=== PATIENT | male | born 1975 | race African-American/Black ===

== ENCOUNTER 2018-05-28 23:06 | Emergency (ER) | payer SELFPAY | END 2018-05-29 04:44 | disposition home or self-care (01) | LOC: ER 23:06 | DX: T83.028A Displacement of other urinary catheter, initial encounter (principal); I10 Essential (primary) hypertension | CPT/HCPCS: 51705; 99284-25 ==

== ENCOUNTER 2018-09-03 02:26 | Emergency (ER) | payer SELFPAY ==
[~2018-09-03] VITALS: Ht 177.8 cm; Wt 59.9 kg
[2018-09-03] MEDS ORDERED: diphenhydrAMINE 50 MG/ML VIAL IV ONE (03:00)
[2018-09-03] MEDS ORDERED: FAMOTIDINE 20 MG/2 ML VIAL IVP ONE (03:00)
[2018-09-03] MEDS ORDERED: IV NORMAL SALINE 1000ML BAG 1,000 ML IV ONE (03:00)
[2018-09-03] MEDS ORDERED: DEXAMETHASONE SOD PHOS 20 MG/5 ML VIAL. IV ONE (03:00)
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
[2018-09-03 03:48] LABS: BASO # 0.1 x10^3/uL (0.0-0.2); BASO % 1 % (0-3); EOS # 0.1 x10^3/uL (0.0-0.7); EOS % 1 % (0-3); HEMOGLOBIN 15.1 g/dL (13.0-17.5); LYMPH # 2.5 x10^3/uL (1.0-4.8); LYMPH % 23 % (24-48); MEAN CORPUSCULAR HEMOGLOBIN 31 pg (25-35); MEAN CORPUSCULAR HGB CONC 34 g/dL (31-37); MEAN CORPUSCULAR VOLUME 91 fL (79-100); MONO # 1.1 x10^3/uL (0.0-1.1); MONO % 10 % (0-9); NEUT # 7.3 x10^3uL (1.8-7.7); NEUT % 66 % (31-73); PLATELET COUNT 186 x10^3/uL (140-400); RED BLOOD COUNT 4.92 x10^6/uL (4.30-5.70); RED CELL DISTRIBUTION WIDTH 13.9 % (11.5-14.5); WHITE BLOOD COUNT 11.1 x10^3/uL (4.0-11.0)
[2018-09-03 03:54] LABS: CALCIUM 9.9 mg/dL (8.5-10.1); CREATININE 1.6 mg/dL (0.7-1.3); GFR 57.4; POTASSIUM 4.1 mmol/L (3.5-5.1)
[2018-09-03 04:00] LABS: ALBUMIN 4.1 g/dL (3.4-5.0); ALBUMIN/GLOBULIN RATIO 0.9 (1.0-1.7); MAGNESIUM 1.9 mg/dL (1.8-2.4); TOTAL BILIRUBIN 0.9 mg/dL (0.2-1.0); TOTAL PROTEIN 8.6 g/dL (6.4-8.2)
[2018-09-03 04:05] LABS: BILIRUBIN,URINE NEGATIVE (NEG); CLARITY,URINE CLEAR; COLOR,URINE YELLOW; NITRITE,URINE NEGATIVE (NEG); PH,URINE 6.5; PROTEIN,URINE NEGATIVE (NEG-TRACE); UROBILINOGEN,URINE 0.2 mg/dL (0.2 mg/dL)
[2018-09-03 04:11] LABS: BARBITURATES NEG (NEG); BENZODIAZEPINES NEG (NEG); CANNABINOIDS POS (NEG); COCAINE NEG (NEG); METHADONE NEG (NEG); OPIATES NEG (NEG); PHENCYCLIDINE POS (NEG)
[2018-09-03 04:13] LABS: AMPHETAMINE/METHAMPHETAMINE NEG (NEG)
[2018-09-03 04:17] LABS: BACTERIA,URINE 0 /HPF (0-FEW); WBC,URINE TNTC /HPF (0-4)
--- NOTE | 2018-09-03 04:41 | RAD ---
Ultrasound testes HISTORY: Left-sided pain and swelling Sonographic examination was performed of the testes and multiple static images were obtained The testes have normal echotexture and blood flow. The right testis measures 3.5 x 2.6 x 1.8 cm. The cyst measures approximately 2.6 x 1.7 cm. The right testis migrated during the examination, the patient claims attempts to both testes. The small hydrocele right. The left testis and epididymis are hyperemic. The left epididymis is enlarged and heterogeneous. IMPRESSION: Increased blood flow within the left epididymis and testis suggest epididymitis and orchitis. Electronically signed by: Kory Thakkar III, MD (09/03/2018 4:37 AM) [facility]
[2018-09-03] MEDS ORDERED: CEPH-264 PO (05:03)
[2018-09-03 05:14] VITALS: BP 137/91
[2018-09-03] MEDS ORDERED: AZITHROMYCIN 250 MG TABLET. PO ONE (05:30)
== END 2018-09-03 05:33 | disposition home or self-care (01) ==
LOC: ER 02:26
DX: S00.531A Contusion of lip, initial encounter (principal); N45.3 Epididymo-orchitis; I10 Essential (primary) hypertension; F17.200 Nicotine dependence, unspecified, uncomplicated; W04.XXXA Fall while being carried or supported by other persons, initial encounter; Y93.89 Activity, other specified; Y92.89 Other specified places as the place of occurrence of the external cause; Y99.8 Other external cause status
CPT/HCPCS: 36415; 76870; 80053; 80307; 81001; 83605; 83735; 85025; 87086; 96365; 96375; 99285; G0480; J0690; J1100; J1200; J3490; J7030; Q0144; 87491; 87591

== ENCOUNTER 2019-02-20 20:46 | Inpatient (IN) | payer SELFPAY ==
[~2019-02-20] VITALS: Ht 180.3 cm; Wt 59.9 kg
[~2019-02-20 20:46] MED LIST: CEPH-264 PO
[2019-02-20 22:07] LABS: BILIRUBIN,URINE SMALL (NEG); CLARITY,URINE TURBID; COLOR,URINE RED; NITRITE,URINE NEGATIVE (NEG); PH,URINE 8.5; PROTEIN,URINE >=300 mg/dL (NEG-TRACE); UROBILINOGEN,URINE 0.2 mg/dL (0.2 mg/dL)
[2019-02-20 22:14] LABS: BACTERIA,URINE MANY /HPF (0-FEW); SQUAMOUS EPITHELIAL CELL,UR OCC /LPF; WBC,URINE TNTC /HPF (0-4)
[2019-02-20] MEDS ORDERED: ONDANSETRON PF 4 MG/2 ML VIAL. IV ONE (22:30)
[2019-02-20] MEDS ORDERED: TAMSULOSIN 0.4 MG CAP.ER.24H. PO ONE (22:30)
[2019-02-20] MEDS ORDERED: MORPHINE SULFATE 10 MG/ML VIAL. IV ONE ×2 (22:30→23:45)
[2019-02-20] MEDS ORDERED: KETOROLAC 30 MG/ML VIAL. IV ONE (22:30)
[2019-02-20 22:38] LABS: BASO % 0 % (0-3); EOS % 0 % (0-3); HEMATOCRIT 47.2 % (39.0-53.0); HEMOGLOBIN 15.3 g/dL (13.0-17.5); LYMPH # 0.5 x10^3/uL (1.0-4.8); LYMPH % 3 % (24-48); MEAN CORPUSCULAR HEMOGLOBIN 30 pg (25-35); MEAN CORPUSCULAR HGB CONC 32 g/dL (31-37); MEAN CORPUSCULAR VOLUME 92 fL (79-100); MONO # 0.7 x10^3/uL (0.0-1.1); MONO % 4 % (0-9); NEUT # 15.9 x10^3uL (1.8-7.7); NEUT % 93 % (31-73); PLATELET COUNT 153 x10^3/uL (140-400); RED BLOOD COUNT 5.13 x10^6/uL (4.30-5.70); RED CELL DISTRIBUTION WIDTH 14.5 % (11.5-14.5); WHITE BLOOD COUNT 17.1 x10^3/uL (4.0-11.0)
[2019-02-20] MEDS: IV NORMAL SALINE 1000ML BAG 1,000 ML IV SCH ×2 (22:43→22:56)
[2019-02-20] MEDS ORDERED: PIPERACILLIN/TAZOBACTAM 4.5 GM in IV NORMAL SALINE 100ML 100 ML IV ONE (22:45)
[2019-02-20 22:54] LABS: CREATININE 1.6 mg/dL (0.7-1.3); GFR 57.1; POTASSIUM 3.7 mmol/L (3.5-5.1)
[2019-02-20 23:00] LABS: BARBITURATES NEG (NEG); BENZODIAZEPINES NEG (NEG); CANNABINOIDS POS (NEG); COCAINE NEG (NEG); METHADONE NEG (NEG); OPIATES NEG (NEG); PHENCYCLIDINE POS (NEG)
[2019-02-20] MEDS ORDERED: VANCOMYCIN PER PHARMACY MC ONE (23:00)
[2019-02-20] MEDS ORDERED: VANCOMYCIN 1.5 GM in IV NORMAL SALINE 500ML BAG 500 ML IV ONE (23:00)
[2019-02-20 23:02] LABS: AMPHETAMINE/METHAMPHETAMINE NEG (NEG)
[2019-02-20 23:03] LABS: ALBUMIN 4.1 g/dL (3.4-5.0); ALBUMIN/GLOBULIN RATIO 1.1 (1.0-1.7); TOTAL BILIRUBIN 1.1 mg/dL (0.2-1.0); TOTAL PROTEIN 7.9 g/dL (6.4-8.2)
[2019-02-20 23:16] LABS: % LYMPHS 5 % (24-48); % MONOS 1 % (0-10); % SEGS 94 % (35-66)
[2019-02-20 23:18] LABS: ANISOCYTOSIS SLIGHT; PLT ESTIMATE ADEQUATE (ADEQUATE); POLYCHROMASIA SLIGHT
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
[2019-02-21] MEDS ORDERED: MORPHINE SULFATE 4 MG/ML VIAL. IV PRN (00:45)
[2019-02-21] MEDS ORDERED: cloNIDine HCL 0.1 MG TABLET PO PRN (00:45)
[2019-02-21] MEDS ORDERED: cloNIDine HCL 0.1 MG TABLET PO ONE (00:45)
[2019-02-21] MEDS ORDERED: ONDANSETRON PF 4 MG/2 ML VIAL. IV PRN (00:45)
[2019-02-21] MEDS ORDERED: IV NORMAL SALINE 1000ML BAG 1,000 ML IV ONE (00:45)
[2019-02-21] MEDS ORDERED: ACETAMINOPHEN 325 MG TABLET. PO PRN (00:45)
[2019-02-21 03:00] VITALS: BP 105/69
--- NOTE | 2019-02-21 04:08 | NUR ---
The patient, SILAS HA, 44 y/o, M admitted by HUEY QUINTANA MD, was given written information regarding hospital policies, unit procedures and contact persons. Valuables were checked and left with patient .
[2019-02-21] MEDS ORDERED: AMLO5TAB10 PO (05:55)
[2019-02-21 07:00] VITALS: BP 123/76
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
[2019-02-21] MEDS ORDERED: PHENAZOPYRIDINE 200 MG TABLET. PO PRN (10:45)
[2019-02-21] MEDS ORDERED: PIP/TAZO PER PHARMACY MC PRN (10:45)
[2019-02-21 11:00] VITALS: BP 132/86
[2019-02-21] MEDS ORDERED: NICOTINE 21MG PATCH. TD PRN (11:00)
[2019-02-21] MEDS: amLODIPine BESYLATE 5 MG TABLET PO SCH (11:48)
[2019-02-21] MEDS: PIPERACILLIN/TAZOBACTAM 3.375 GM in IV NORMAL SALINE 50ML 50 ML IV SCH ×2 (11:51→17:46)
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
[2019-02-21 15:00] VITALS: BP 116/69
--- NOTE | 2019-02-21 15:56 | NUR ---
SW consulted for homelessness and needs a job. Chart reviewed. PAT team seen pt and pt is provided with housing information/Job information. Pt denies need for OP tx for Substance use. Pt also stated he currently is staying with family friends at this time. Will continue to follow.
[2019-02-21 19:00] VITALS: BP 136/87
[2019-02-21 23:00] VITALS: BP 129/77
[2019-02-22] MEDS: PIPERACILLIN/TAZOBACTAM 3.375 GM in IV NORMAL SALINE 50ML 50 ML IV SCH ×4 (00:30→18:00)
[2019-02-22 03:00] VITALS: BP 122/70
[2019-02-22 07:00] VITALS: BP 116/75
[2019-02-22 08:31] LABS: BASO # 0.1 x10^3/uL (0.0-0.2); BASO % 1 % (0-3); EOS # 0.1 x10^3/uL (0.0-0.7); EOS % 1 % (0-3); HEMOGLOBIN 13.4 g/dL (13.0-17.5); LYMPH # 0.9 x10^3/uL (1.0-4.8); LYMPH % 11 % (24-48); MEAN CORPUSCULAR HEMOGLOBIN 30 pg (25-35); MEAN CORPUSCULAR HGB CONC 33 g/dL (31-37); MEAN CORPUSCULAR VOLUME 93 fL (79-100); MONO % 13 % (0-9); NEUT % 75 % (31-73); PLATELET COUNT 135 x10^3/uL (140-400); RED BLOOD COUNT 4.42 x10^6/uL (4.30-5.70); RED CELL DISTRIBUTION WIDTH 14.3 % (11.5-14.5)
[2019-02-22 08:45] LABS: CALCIUM 8.6 mg/dL (8.5-10.1); CREATININE 1.5 mg/dL (0.7-1.3); GFR 61.5; POTASSIUM 3.7 mmol/L (3.5-5.1)
[2019-02-22 11:00] VITALS: BP 135/86
[2019-02-22] MEDS: amLODIPine BESYLATE 5 MG TABLET PO SCH (13:15)
[2019-02-22] MEDS ORDERED: CIPR250T30 PO (14:13)
[2019-02-22] MEDS ORDERED: PHEN-444 PO (14:13)
--- NOTE | 2019-02-22 14:16 | PDOC3 ---
Discharge Summary Visit Information Date of Admission: Feb 21, 2019 Date of Discharge: Feb 22, 2019 Admitting Diagnosis: abd pain Final Diagnosis UTI, wth SIRS, leukocytosis and tachypnea, sepsis acute pelvic pain weakness substance abuse, PCP and THC Problems Medical Problems: (1) Chronic renal failure Status: Acute (2) Hypertension Status: Acute (3) Urinary tract infection associated with catheterization of urinary tract Status: Acute Brief Hospital Course Allergies Allergies Coded Allergies Type Severity Reaction Last Updated Verified No Known Drug Allergies 04/24/14 No Vital Signs Vital Signs Date Time Temp Pulse Resp B/P (MAP) Pulse Ox O2 Delivery O2 Flow Rate FiO2 02/22/19 13:15 52 135/86 02/22/19 11:00 98.7 16 99 Room Air 98.7 Lab Results Laboratory Tests Test 02/20/19 21:59 02/20/19 22:29 02/22/19 07:50 Urine Color Red Urine Clarity Turbid Urine pH 8.5 Urine Specific [place] 1.020 Urine Protein >=300 mg/dL (NEG-TRACE) Urine Glucose (UA) 100 mg/dL (NEG) Urine Ketones (Stick) Trace mg/dL (NEG) Urine Blood Large (NEG) Urine Nitrite Negative (NEG) Urine Bilirubin Small (NEG) Urine Urobilinogen Dipstick 0.2 mg/dL (0.2 mg/dL) Urine Leukocyte Esterase Large (NEG) Urine RBC 6-10 /HPF (0-2) Urine WBC Tntc /HPF (0-4) Urine Squamous Epithelial Cells Occ /LPF Urine Bacteria Many /HPF (0-FEW) Urine Mucus Slight /LPF Urine Opiates Screen Neg (NEG) Urine Methadone Screen Neg (NEG) Urine Barbiturates Neg (NEG) Urine Phencyclidine Screen Pos (NEG) Urine Amphetamine/Methamphetamine Neg (NEG) Urine Benzodiazepines Screen Neg (NEG) Urine Cocaine Screen Neg (NEG) Urine Cannabinoids Screen Pos (NEG) Urine Ethyl Alcohol Neg (NEG) White Blood Count 17.1 x10^3/uL (4.0-11.0) 8.0 x10^3/uL (4.0-11.0) Red Blood Count 5.13 x10^6/uL (4.30-5.70) 4.42 x10^6/uL (4.30-5.70) Hemoglobin 15.3 g/dL (13.0-17.5) 13.4 g/dL (13.0-17.5) Hematocrit 47.2 % (39.0-53.0) 41.0 % (39.0-53.0) Mean Corpuscular Volume 92 fL (79-100) 93 fL (79-100) Mean Corpuscular Hemoglobin 30 pg (25-35) 30 pg (25-35) Mean Corpuscular Hemoglobin Concent 32 g/dL (31-37) 33 g/dL (31-37) Red Cell Distribution Width 14.5 % (11.5-14.5) 14.3 % (11.5-14.5) Platelet Count 153 x10^3/uL (140-400) 135 x10^3/uL (140-400) Neutrophils (%) (Auto) 93 % (31-73) 75 % (31-73) Lymphocytes (%) (Auto) 3 % (24-48) 11 % (24-48) Monocytes (%) (Auto) 4 % (0-9) 13 % (0-9) Eosinophils (%) (Auto) 0 % (0-3) 1 % (0-3) Basophils (%) (Auto) 0 % (0-3) 1 % (0-3) Neutrophils # (Auto) 15.9 x10^3uL (1.8-7.7) 6.0 x10^3uL (1.8-7.7) Lymphocytes # (Auto) 0.5 x10^3/uL (1.0-4.8) 0.9 x10^3/uL (1.0-4.8) Monocytes # (Auto) 0.7 x10^3/uL (0.0-1.1) 1.0 x10^3/uL (0.0-1.1) Eosinophils # (Auto) 0.0 x10^3/uL (0.0-0.7) 0.1 x10^3/uL (0.0-0.7) Basophils # (Auto) 0.0 x10^3/uL (0.0-0.2) 0.1 x10^3/uL (0.0-0.2) Segmented Neutrophils % 94 % (35-66) Lymphocytes % 5 % (24-48) Monocytes % 1 % (0-10) Platelet Estimate Adequate (ADEQUATE) Large Platelets Occ Polychromasia Slight Anisocytosis Slight Sodium Level 139 mmol/L (136-145) 143 mmol/L (136-145) Potassium Level 3.7 mmol/L (3.5-5.1) 3.7 mmol/L (3.5-5.1) Chloride Level 101 mmol/L (98-107) 108 mmol/L (98-107) Carbon Dioxide Level 24 mmol/L (21-32) 26 mmol/L (21-32) Anion Gap 14 (6-14) 9 (6-14) Blood Urea Nitrogen 22 mg/dL (8-26) 10 mg/dL (8-26) Creatinine 1.6 mg/dL (0.7-1.3) 1.5 mg/dL (0.7-1.3) Estimated GFR (Cockcroft-Gault) 57.1 61.5 BUN/Creatinine Ratio 14 (6-20) Glucose Level 124 mg/dL (70-99) 95 mg/dL (70-99) Lactic Acid Level 2.0 mmol/L (0.4-2.0) Calcium Level 10.0 mg/dL (8.5-10.1) 8.6 mg/dL (8.5-10.1) Total Bilirubin 1.1 mg/dL (0.2-1.0) Aspartate Amino Transf (AST/SGOT) 28 U/L (15-37) Alanine Aminotransferase (ALT/SGPT) 27 U/L (16-63) Alkaline Phosphatase 99 U/L (46-116) Total Protein 7.9 g/dL (6.4-8.2) Albumin 4.1 g/dL (3.4-5.0) Albumin/Globulin Ratio 1.1 (1.0-1.7) Procalcitonin < 0.10 ng/mL (0.00-0.10) Ethyl Alcohol Level < 10 mg/dL (0-10) Laboratory Tests Test 02/22/19 07:50 White Blood Count 8.0 x10^3/uL (4.0-11.0) Red Blood Count 4.42 x10^6/uL (4.30-5.70) Hemoglobin 13.4 g/dL (13.0-17.5) Hematocrit 41.0 % (39.0-53.0) Mean Corpuscular Volume 93 fL (79-100) Mean Corpuscular Hemoglobin 30 pg (25-35) Mean Corpuscular Hemoglobin Concent 33 g/dL (31-37) Red Cell Distribution Width 14.3 % (11.5-14.5) Platelet Count 135 x10^3/uL (140-400) Neutrophils (%) (Auto) 75 % (31-73) Lymphocytes (%) (Auto) 11 % (24-48) Monocytes (%) (Auto) 13 % (0-9) Eosinophils (%) (Auto) 1 % (0-3) Basophils (%) (Auto) 1 % (0-3) Neutrophils # (Auto) 6.0 x10^3uL (1.8-7.7) Lymphocytes # (Auto) 0.9 x10^3/uL (1.0-4.8) Monocytes # (Auto) 1.0 x10^3/uL (0.0-1.1) Eosinophils # (Auto) 0.1 x10^3/uL (0.0-0.7) Basophils # (Auto) 0.1 x10^3/uL (0.0-0.2) Sodium Level 143 mmol/L (136-145) Potassium Level 3.7 mmol/L (3.5-5.1) Chloride Level 108 mmol/L (98-107) Carbon Dioxide Level 26 mmol/L (21-32) Anion Gap 9 (6-14) Blood Urea Nitrogen 10 mg/dL (8-26) Creatinine 1.5 mg/dL (0.7-1.3) Estimated GFR (Cockcroft-Gault) 61.5 Glucose Level 95 mg/dL (70-99) Calcium Level 8.6 mg/dL (8.5-10.1) Brief Hospital Course Mr. Becker is a 44 old male with suprapubic cath, admit with bladder spasm and pain, retention, 1000 mls out in ER, tubing changed, pain beter with pyridine, + UTI, zosyn x2 days, then DC on cipro 10 days, blood cx neg, ucx pending, f/u [facility] for monthly tubing changes as prior Discharge Information Condition at Discharge: Improved Follow Up: Weeks Disposition/Orders: D/C to Home Scheduled Amlodipine Besylate (Amlodipine Besylate) 5 Mg Tablet, 5 MG PO BID for Hyptertention , (Reported) Entered as Reported by: SADE TADEO RN on 02/21/19554 Last Action: Reviewed on 02/21/19555 by SADE TADEO RN Ciprofloxacin Hcl (Cipro) 250 Mg Tablet, 1 TAB PO BID for UTI, #20 Prescribed by: JERAD LOPEZ on 02/22/19 1413 Scheduled PRN Phenazopyridine Hcl (Phenazopyridine Hcl) 200 Mg Tablet, 200 MG PO PRN TID PRN for URINARY PAIN, #30 Prescribed by: JERAD LOPEZ on 02/22/19 1413 Patient Instructions Patient Instructions face to face discussion JERAD LOPEZ MD Feb 22, 2019 14:16
[2019-02-22 15:00] VITALS: BP 139/93
[2019-02-22 19:00] VITALS: BP 133/80
--- NOTE | 2019-02-22 20:35 | NUR ---
Discharge Note: SILAS HA [address] [place] [address] Discharge instructions and discharge home medications reviewed with Patient and a copy given. All questions have been answered and understanding verbalized. The following instructions and handouts were given: Home instruction and medication list given by ESTEPHANIA Shepherd. Discontinued lines and drains: Saline lock removed and skin intact, by ESTEPHANIA Shepherd. Patient discharged to home with self care to his girlfriend, left unit in wheelchair assisted by [employer] staff accompanied to hospital exit for private transportation per vehicle, with all personal belongings taken with him.
== END 2019-02-22 20:35 | disposition home or self-care (01) | DRG 872 ==
LOC: ER 20:46 → 5 NORTH 02-21 00:39
PROVIDERS: ADMIT Internal Medicine; ATTEND Internal Medicine
DX: A41.9 Sepsis, unspecified organism (principal); N39.0 Urinary tract infection, site not specified; F17.210 Nicotine dependence, cigarettes, uncomplicated; I12.9 Hypertensive chronic kidney disease with stage 1 through stage 4 chronic kidney disease, or unspecified chronic kidney disease; N18.9 Chronic kidney disease, unspecified; Z81.1 Family history of alcohol abuse and dependence; Z79.899 Other long term (current) drug therapy
CPT/HCPCS: 36415; 51702; 80048; 80053; 80307; 81001; 83605; 84145; 85007; 85025; 87040; 87086; 87186; 96365; 96366; 96367; 96375; G0480; J1885; J2270; J2405; J2543; J3370; J7030; J7040; 99285-25

== ENCOUNTER 2019-02-26 17:54 | Emergency (ER) | payer SELFPAY ==
[~2019-02-26] VITALS: Ht 177.8 cm; Wt 58.1 kg
[~2019-02-26 17:54] MED LIST changes: +AMLO5TAB10 PO; +CIPR250T30 PO; +PHEN-444 PO
[2019-02-26 18:42] LABS: BASO # 0.1 x10^3/uL (0.0-0.2); BASO % 1 % (0-3); EOS # 0.2 x10^3/uL (0.0-0.7); EOS % 2 % (0-3); HEMATOCRIT 46.5 % (39.0-53.0); LYMPH # 1.4 x10^3/uL (1.0-4.8); LYMPH % 19 % (24-48); MEAN CORPUSCULAR HEMOGLOBIN 30 pg (25-35); MEAN CORPUSCULAR HGB CONC 32 g/dL (31-37); MEAN CORPUSCULAR VOLUME 93 fL (79-100); MONO # 0.7 x10^3/uL (0.0-1.1); MONO % 10 % (0-9); NEUT # 4.9 x10^3uL (1.8-7.7); NEUT % 68 % (31-73); PLATELET COUNT 148 x10^3/uL (140-400); RED BLOOD COUNT 4.98 x10^6/uL (4.30-5.70); RED CELL DISTRIBUTION WIDTH 14.5 % (11.5-14.5); WHITE BLOOD COUNT 7.2 x10^3/uL (4.0-11.0)
[2019-02-26 19:07] LABS: ACETAMIN < 2 mcg/ml (10-30); ETHANOL < 10 mg/dL (0-10); SALIC < 2.8 mg/dL (2.8-20.0)
[2019-02-26 19:11] LABS: PLT ESTIMATE ADEQUATE (ADEQUATE)
[2019-02-26 19:13] LABS: CALCIUM 9.8 mg/dL (8.5-10.1); CREATININE 1.4 mg/dL (0.7-1.3); GFR 66.6; POTASSIUM 3.8 mmol/L (3.5-5.1)
[2019-02-26 19:18] LABS: ALBUMIN 3.5 g/dL (3.4-5.0); ALBUMIN/GLOBULIN RATIO 0.9 (1.0-1.7); MAGNESIUM 2.2 mg/dL (1.8-2.4); TOTAL BILIRUBIN 0.4 mg/dL (0.2-1.0); TOTAL PROTEIN 7.6 g/dL (6.4-8.2)
[2019-02-26 19:22] LABS: AMPHETAMINE/METHAMPHETAMINE NEG (NEG); BARBITURATES NEG (NEG); BENZODIAZEPINES NEG (NEG); CANNABINOIDS POS (NEG); COCAINE NEG (NEG); METHADONE NEG (NEG); OPIATES NEG (NEG); PHENCYCLIDINE POS (NEG)
[2019-02-26 19:33] LABS: BILIRUBIN,URINE NEGATIVE (NEG); CLARITY,URINE TURBID; COLOR,URINE YELLOW; NITRITE,URINE POSITIVE (NEG); PH,URINE 8.5; PROTEIN,URINE 100 mg/dL (NEG-TRACE); UROBILINOGEN,URINE 0.2 mg/dL (0.2 mg/dL)
[2019-02-26 19:38] LABS: BACTERIA,URINE MODERATE /HPF (0-FEW); SQUAMOUS EPITHELIAL CELL,UR OCC /LPF
[2019-02-26 19:39] LABS: AMORPHOUS SEDIMENT,UR PRESENT /HPF
[2019-02-26 20:09] VITALS: BP 163/88
[2019-02-26] MEDS ORDERED: CEPH-264 PO (20:25)
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
[2019-02-26] MEDS ORDERED: CEPHALEXIN 250 MG CAPSULE. PO ONE (20:30)
== END 2019-02-26 21:01 | disposition home or self-care (01) ==
LOC: ER 17:54
DX: T83.511D Infection and inflammatory reaction due to indwelling urethral catheter, subsequent encounter (principal); F12.20 Cannabis dependence, uncomplicated; R45.851 Suicidal ideations; F16.20 Hallucinogen dependence, uncomplicated; F10.20 Alcohol dependence, uncomplicated; Y90.0 Blood alcohol level of less than 20 mg/100 ml; I12.0 Hypertensive chronic kidney disease with stage 5 chronic kidney disease or end stage renal disease; N18.5 Chronic kidney disease, stage 5
CPT/HCPCS: 36415; 80053; 80307; 80329; 81001; 83735; 85025; 87086; 99284; G0480; 87186